=== PATIENT | female | born 1995 | race Caucasian/White ===

== ENCOUNTER 2023-09-29 22:10 | Emergency (ER) | payer SELFPAY ==
[2023-09-29 22:34] VITALS: BP 132/88; PULSE 89; RESP 18; TEMP 98.9; BMI 25.8
[2023-09-29] MEDS ORDERED: DIPHTH,PERTUSS(ACELL),TET 0.5 ML DISP.SYRIN IM ONE (23:59)
[2023-09-30] MEDS: DIPHTH,PERTUSS(ACELL),TET VAC 0.5 ML VIAL IM ONE (00:04)
== END 2023-09-30 00:17 | disposition home or self-care (01) ==
LOC: JER 22:10
DX: S61.210A Laceration without foreign body of right index finger without damage to nail, initial encounter (principal); W26.0XXA Contact with knife, initial encounter; Y92.010 Kitchen of single-family (private) house as the place of occurrence of the external cause; Z23 Encounter for immunization
CPT/HCPCS: 99282-25